=== PATIENT | female | born 1980 | race Caucasian/White ===

== ENCOUNTER 2016-08-22 19:21 | Emergency (ER) | payer MEDICARE ==
[2016-08-22 19:29] VITALS: O2SAT 97
[2016-08-22] MEDS ORDERED: Tylenol #3 Tablet PO ONE (20:02)
[2016-08-22] MEDS ORDERED: AMOXIL 500 MG PO ONE (20:02)
[2016-08-22] MEDS ORDERED: Tylenol #3 Tablet ONE (20:05)
[2016-08-22] MEDS ORDERED: AMOXIL 500 MG ONE (20:05)
--- NOTE | 2016-08-22 20:07 | ERPHSYRPT ---
- History of Present Illness Time Seen by Provider: 08/22/16 19:54 Source: patient Patient Subjective Stated Complaint: Pt sts rt upper and lower dental pain since Monday. Sts pain 05/30. Pt sts increased with movement, attempting to talk, eat. Pt sts pain radiates into neck and head. Pt sts has broken teeth, unable to get into dentist today. Sts she feels like her face is swollen. Triage Nursing Assessment: Pt alert, oriented, answers all questions appropriately. Skin p/w/d, resps non-labored. Pts rt side of face appears swollen. Physician History: CC: toothache Hx: 35 y/o patient from [place] who sees Dr Perkins. She has hx of HTN. She has few day hx of right face pain, toothache, and pain in face. No fever or redness. Moderately severe pain. Not relieved with tylenol. States not . Allergic to keflex but able to take PCN and amoxil without difficulty. ENT Location: facial, dental Allergies/Adverse Reactions: azithromycin Allergy (Verified 08/22/16 19:31) Vomiting cephalexin [From Keflex] Allergy (Verified 08/22/16 19:31) Hives chlorpromazine [From Thorazine] Allergy (Verified 08/22/16 19:31) Tightness of Throat fentanyl Allergy (Verified 08/22/16 19:31) Tightness of Throat fluoxetine [From Prozac] Allergy (Verified 08/22/16 19:31) Tightness of Throat ketorolac [From Toradol] Allergy (Verified 08/22/16 19:31) Tightness of Throat Home Medications: Enalapril Maleate [Vasotec] 20 mg PO BID 08/22/16 [History] Metoprolol Tartrate 50 mg PO BID 08/22/16 [History] Hx Tetanus, Diphtheria Vaccination/Date Given: Yes Hx Influenza Vaccination/Date Given: No Hx Pneumococcal Vaccination/Date Given: No - Review of Systems Constitutional: No Fever, No Chills Ears, Nose, & Throat: Mouth Pain Respiratory: No Dyspnea Abdominal/Gastrointestinal: No Vomiting Skin: No Cellulitis, No Rash Neurological: No Headache - Past Medical History Pertinent Past Medical History: Yes Cardiac History: Congenital Heart Disease Respiratory History: Asthma Psycho-Social History: Anxiety, Depression Other Medical History: CARDIOMYOPATHY, LBBB, "VALVE PROBLEM", 30% EF - Past Surgical History Past Surgical History: Yes Cardiac: Cardiac Catheterization, Internal Defibrillator, Pacemaker Gastrointestinal: Appendectomy, Cholecystectomy Other Surgical History: HYST,BRIEN, SEVERAL HERNIA REPAIRS. - Social History Smoking Status: Current every day smoker How long have you smoked: since 10 Exposure to second hand smoke: No Drug Use: none Patient Lives Alone: No - Female History Hx Last Menstrual Period: hyst - Nursing Vital Signs Nursing Vital Signs: Initial Vital Signs Temperature 98.1 F Temperature Source Oral Pulse Rate 98 Respiratory Rate 16 Blood Pressure 193/106 Pain Intensity 10 - Physical Exam General Appearance: alert Eye Exam: bilateral eye: PERRL, EOMI Ear Exam: bilateral ear: TM normal Nasal Exam: normal inspection Throat Exam: pharynx normal Neck Exam: non-tender, supple Cardiovascular/Respiratory Exam: normal breath sounds, regular rate/rhythm Abdominal Exam: soft Neurologic Exam: alert, oriented x 3, cooperative Skin Exam: warm, dry, other (no facial cellulitis), No rash SpO2 Interpretation: normal SpO2: 97 Comments: some caries in multiple teeth. No large abscess. No trismus. No facial cellulitis. Right upper molars tender to percussion. - Course Nursing assessment & vital signs reviewed: Yes - Progress Progress Note: 08/22/16 20:05 She has HTN and plans to follow up with Dr Perkins. INSPECT reviewed. She has multiple prescriptions from multiple providers. Advised she needs to see Dr Perkins primary care about her medications. ER can not refill pain medications. She has appt to see dentist in [place] tomorrow. Codiene given here as well as amoxil. Counseled pt/family regarding: diagnosis, need for follow-up - Departure Time of Disposition: 20:06 Departure Disposition: Home Clinical Impression: Toothache, Hypertension Condition: Stable Critical Care Time: No Referrals: Provider,Unknown [Primary Care Provider] - Instructions: Tooth Decay, Dental Pain, High Blood Pressure Additional Instructions: No driving tonite. See dentist tomorrow. Rx amoxil. Follow up with Dr Perkins regarding your blood pressure and medications. Prescriptions: Amoxicillin [Amoxil] 1 cap PO TID #21 capsule
[2016-08-22 20:39] VITALS: BP 161/91; PULSE 90
== END 2016-08-22 20:40 | disposition home or self-care (01) ==
LOC: ED 19:21
DX: K08.89 Other specified disorders of teeth and supporting structures (principal); I10 Essential (primary) hypertension; Z79.899 Other long term (current) drug therapy
CPT/HCPCS: 99282